=== PATIENT | female | born 1995 | race Hispanic/Latino ===

== ENCOUNTER 2025-07-31 17:36 | Emergency (ER) | payer MEDICAID, MEDICARE ==
[2025-07-31 17:40] VITALS: PULSE 88; RESP 18; TEMP 98.4
[2025-07-31 20:21] VITALS: BP 116/74; PULSE 88; RESP 18; TEMP 98.4; O2SAT 99
== END 2025-07-31 20:20 | disposition home or self-care (01) ==
LOC: FSED 17:41
DX: O26.891 Other specified pregnancy related conditions, first trimester (principal); M54.50 Low back pain, unspecified
CPT/HCPCS: 76801; 76830; 80053; 81003; 81025; 85025; 99283